=== PATIENT | female | born 1990 | race Caucasian/White ===

== ENCOUNTER 2024-08-10 08:05 | Outpatient (CLI) | payer OTHER, SELFPAY | END 2024-08-10 08:06 | disposition home or self-care (01) | LOC: NFLDREF 08-12 16:38 | PROVIDERS: Referring Provider Family Medicine; Visit Provider Nurse Practitioner Family | DX: E06.3 Autoimmune thyroiditis (principal); R03.0 Elevated blood-pressure reading, without diagnosis of hypertension; E28.2 Polycystic ovarian syndrome; Z13.220 Encounter for screening for lipoid disorders | CPT/HCPCS: 80053; 80061; 84439; 84443 ==

== ENCOUNTER 2025-05-08 10:03 | Outpatient (CLI) | payer OTHER, SELFPAY | END 2025-05-08 10:04 | disposition home or self-care (01) | LOC: NFLDREF 05-15 12:07 | PROVIDERS: PCP Nurse Practitioner Family; Referring Provider Nurse Practitioner Family; Visit Provider Family Medicine | DX: Z11.1 Encounter for screening for respiratory tuberculosis (principal) | CPT/HCPCS: 86480 ==